=== PATIENT | male | born 1970 | race African-American/Black ===

== ENCOUNTER 2023-09-23 18:31 | Emergency (ER) | payer MEDICAID, OTHER ==
[~2023-09-23] VITALS: Ht 180.3 cm; Wt 127.0 kg
[2023-09-23 18:55] VITALS: BP 167/107; PULSE 104; RESP 16; TEMP 98; O2SAT 98
== END 2023-09-23 21:10 | disposition left against medical advice (07) ==
LOC: ER 18:31
DX: I10 Essential (primary) hypertension (principal)
CPT/HCPCS: 99281